=== PATIENT | male | born 1965 | race Caucasian/White ===

== ENCOUNTER 2018-11-12 06:55 | Day surgery (SDC) | payer OTHER ==
[~2018-11-12] VITALS: Ht 172.7 cm; Wt 95.3 kg
[2018-11-12] MEDS ORDERED: fentaNYL 0.05 MG/ML VIAL ONE (08:51)
[2018-11-12] MEDS ORDERED: LIDOCAINE 2% 100 MG/5 ML UJET TP ONE (08:51)
[2018-11-12] MEDS ORDERED: KETOROLAC 30 MG/ML VIAL ONE (09:08)
== END 2018-11-12 09:50 | disposition home or self-care (01) ==
LOC: MOR 06:55 → MMU 06:55 → MOR 09:50
PROVIDERS: ATTEND Internal Medicine Gastroenterology
DX: Z12.11 Encounter for screening for malignant neoplasm of colon (principal); E66.9 Obesity, unspecified; J45.909 Unspecified asthma, uncomplicated; Z68.32 Body mass index [BMI] 32.0-32.9, adult
CPT/HCPCS: 45378; J1885; J3010